=== PATIENT | female | born 1955 | race Caucasian/White ===

== ENCOUNTER 2020-03-30 17:01 | Inpatient (IN) | payer OTHER ==
[~2020-03-30] VITALS: Ht 167.6 cm; Wt 150.9 kg
[~2020-03-30 17:01] MED LIST: ALPR.5 PO; GUAI600T33 PO
[2020-03-30] MEDS ORDERED: ALBU2.5V5 INH (17:40)
[2020-03-30] MEDS ORDERED: IPRAT-ALBUT 0.5-3 ML (17:43)
[2020-03-30] MEDS ORDERED: Ativan1 MG PO (17:43)
[2020-03-30] MEDS ORDERED: Ondansetron4 MG/2 ML IV (17:44)
[2020-03-30 18:52] LABS: BASOPHILS ABSOLUTE AUTO 0.02 K/mm3 (0.00-0.23); BASOPHILS PERCENT AUTO 0 % (0-2); EOSINOPHILS ABSOLUTE AUTO 0.07 K/mm3 (0.00-0.68); EOSINOPHILS PERCENT AUTO 1 % (0-6); Hemoglobin 11.3 g/dL (11.5-16.0); IMMATURE GRAN ABSOLUTE AUTO 0.04 K/mm3 (0.00-0.10); IMMATURE GRAN PERCENT AUTO 0 % (0-1); LYMPHOCYTES ABSOLUTE AUTO 1.88 K/mm3 (0.84-5.20); LYMPHOCYTES PERCENT AUTO 20 % (21-46); MONOCYTES ABSOLUTE AUTO 0.94 K/mm3 (0.16-1.47); MONOCYTES PERCENT AUTO 10 % (4-13); Mean Corpuscular HGB 24.2 pg (26.0-34.0); Mean Corpuscular HGB Conc 30.5 g/dL (31.5-36.5); Mean Corpuscular Volume 79 fL (80-100); Mean Platelet Volume 10.3 fL (9.1-12.4); NEUTROPHILS PERCENT AUTO 68 % (41-73); Platelet Count 318 K/mm3 (150-400); RDW Coefficient Variation 14.6 % (11.7-14.2); RDW Standard Deviation 42.3 fL (35.1-46.3); Red Blood Cell Count 4.66 M/mm3 (3.80-5.20); White Blood Cell Count 9.25 K/mm3 (4.00-11.30)
[2020-03-30 19:13] LABS: Alanine Aminotransfer (ALT/SGP 27 U/L (12-78); Albumin, Blood 2.3 g/dL (3.4-5.0); Albumin/Globulin Ratio 0.5 (0.8-1.8); Alk Phos 70 U/L (50-136); Anion Gap 6 mmol/L (6-16); Aspartate Aminotrans (AST/SGOT 53 U/L (12-37); Bilirubin, Total 0.9 mg/dL (0.1-1.0); Blood Urea Nitrogen 7 mg/dL (8-24); Bun/Creatinine Ratio 10.7 (12.0-20.0); CO2, Blood 27 mmol/L (21-32); Calcium, Blood 8.3 mg/dL (8.5-10.1); Chloride, Blood 102 mmol/L (98-108); Creatinine, Blood 0.65 mg/dL (0.40-1.00); Globulin, Blood 4.6 g/dL (2.2-4.0); Glomerular Filtration Rate >60 (60-); Glucose, Blood 103 mg/dL (70-99); Potassium, Blood 3.8 mmol/L (3.5-5.5); Sodium, Blood 135 mmol/L (136-145); Total Protein, Blood 6.9 g/dL (6.4-8.2); Troponin I <0.015 ng/mL (0.000-0.040)
[2020-03-30 21:30] LABS: International Normalized Ratio 1.04; Prothrombin Time Results 11.1 Sec (9.7-11.5)
--- NOTE | 2020-03-30 23:42 | NUR ---
PCU ADMIT PT BROUGHT TO PCU-13 FROM ER BY JACOBY @ APPROX 2240. PT A&O X4, ABLE TO STAND AND AMBULATE FROM [facility] TO PCU BED. PT BP ELEVATED. MONITOR SHOWS SR-ST, HR 90's-110. SPO2 93% ON 5L NC. PT RESPIRATIONS TACHY & SHALLOW. PT COACHED TO DEEP BREATH. PT REPORTS "NO ONE TOLD ME TO WEAR OXYGEN. MY & I JUST WENT AND GOT SOME. I NEVER WEAR MORE THAN 3L. I ONLY WEAR 2L WHEN I NEED IT." PT WANTING TO REMOVE NC. PT UPDATED ON SPO2 OF 92-93% ON 5L NC & NECESITY FOR NC AT THIS TIME. PT ENCOURAGED TO CONTINUE DEEP BREATHING. PT TALKING QUICKLY & REQUIRES REDIRECTION W/ CONVERSATION. PT DENIES HAVING ANY HOME MEDICATIONS, STATING "I DON'T TAKE ANYTHING AT ALL. THEY WANTED ME TO TAKE THINGS BUT HAVE YOU SEEN ALL THE SIDE EFFECTS FOR XANAX AND ATIVAN. I DON'T HAVE ANXIETY. THEY DID TESTS, I DON'T HAVE IT." PT REPORTS BEING TOLD SHE HAS CANCER 6 MONTHS AGO BUT STATES "THEY DIDN'T TELL ME WHAT KIND OF CANCER. THEY DON'T EVEN KNOW." PT CONFIRMS HAVING BREAST TUMOR REMOVED BUT DENIES KNOWLEDGE OF CANCER. PT REPORTING DARK URINE, DEMANDING IV FLUIDS. PT INFORMED OF NO ORDER FOR IV FLUIDS AT THIS TIME & ENCOURAGED TO DRINK WATER THAT PT IS ALREADY DRINKING. PT DEMANDING TO SEE DOCTOR, PT INFORMED IF ALREADY SEEN BY ADMITTING HOSPITALIST IN ER, HOSPITALIST WILL ROUND AGAIN IN AM. WILL CONTINUE TO MONITOR & PROVIDE CARE.
--- NOTE | 2020-03-31 00:07 | NUR ---
IV FLUIDS SUDHIR MCGHEE NOTIFIED OF PT REPORT OF DARK URINE & REQUEST FOR IV FLUIDS. SUDHIR MCGHEE W/ NEW ORDER FOR LR, SEE ORDERS. NEW ORDER FROM [employer] FOR PRN IV HYDRALAZINE FOR ELEVATED BP WELL, SEE ORDERS.
[2020-03-31 03:33] LABS: Source, Urine Voided
[2020-03-31 03:35] LABS: Appearance, Urine Clear (Clear); Bilirubin, Urine Neg (Neg); Blood, Urine Neg (Neg); Color, Urine Amber (P-Yellow); Glucose Qualitative, Urine Neg (Neg); Ketones, Urine Neg (Neg); Leukocyte Esterase, Urine Neg (Neg); Nitrite, Urine Neg (Neg); Protein, Urine Neg (Neg); Specific Gravity, Urine 1.015 (1.003-1.022); Urobilinogen, Urine 2+ (Normal)
[2020-03-31 04:27] LABS: BASOPHILS ABSOLUTE AUTO 0.04 K/mm3 (0.00-0.23); BASOPHILS PERCENT AUTO 1 % (0-2); EOSINOPHILS ABSOLUTE AUTO 0.18 K/mm3 (0.00-0.68); EOSINOPHILS PERCENT AUTO 2 % (0-6); Hematocrit 38.9 % (33.0-51.0); Hemoglobin 11.7 g/dL (11.5-16.0); IMMATURE GRAN ABSOLUTE AUTO 0.03 K/mm3 (0.00-0.10); IMMATURE GRAN PERCENT AUTO 0 % (0-1); LYMPHOCYTES ABSOLUTE AUTO 1.92 K/mm3 (0.84-5.20); LYMPHOCYTES PERCENT AUTO 23 % (21-46); MONOCYTES ABSOLUTE AUTO 0.93 K/mm3 (0.16-1.47); MONOCYTES PERCENT AUTO 11 % (4-13); Mean Corpuscular HGB 24.2 pg (26.0-34.0); Mean Corpuscular HGB Conc 30.1 g/dL (31.5-36.5); Mean Corpuscular Volume 81 fL (80-100); Mean Platelet Volume 10.1 fL (9.1-12.4); NEUTROPHILS ABSOLUTE AUTO 5.15 K/mm3 (1.96-9.15); NEUTROPHILS PERCENT AUTO 62 % (41-73); Platelet Count 299 K/mm3 (150-400); RDW Coefficient Variation 14.7 % (11.7-14.2); RDW Standard Deviation 43.2 fL (35.1-46.3); Red Blood Cell Count 4.83 M/mm3 (3.80-5.20); White Blood Cell Count 8.25 K/mm3 (4.00-11.30)
[2020-03-31 04:38] LABS: Alanine Aminotransfer (ALT/SGP 28 U/L (12-78); Albumin, Blood 2.1 g/dL (3.4-5.0); Albumin/Globulin Ratio 0.4 (0.8-1.8); Alk Phos 70 U/L (50-136); Anion Gap 7 mmol/L (6-16); Aspartate Aminotrans (AST/SGOT 51 U/L (12-37); Bilirubin, Total 1.2 mg/dL (0.1-1.0); Blood Urea Nitrogen 6 mg/dL (8-24); Bun/Creatinine Ratio 9.8 (12.0-20.0); CO2, Blood 23 mmol/L (21-32); Calcium, Blood 8.1 mg/dL (8.5-10.1); Chloride, Blood 103 mmol/L (98-108); Creatinine, Blood 0.62 mg/dL (0.40-1.00); Globulin, Blood 5.2 g/dL (2.2-4.0); Glomerular Filtration Rate >60 (60-); Glucose, Blood 107 mg/dL (70-99); Potassium, Blood 3.9 mmol/L (3.5-5.5); Sodium, Blood 133 mmol/L (136-145); Total Protein, Blood 7.3 g/dL (6.4-8.2)
--- NOTE | 2020-03-31 05:43 | NUR ---
PT CRYING PT CRYING IN RM. REPORTING SHE FEELS LIKE A BOTHER HAVING TO CALL FOR ASSISTANCE TO USE BATHROOM. PT ENCOURAGED TO CONTINUE CALLING FOR PT SAFETY WHILE HOOKED UP TO TELEMETRY, CONTINUOUS BIOX, & IV FLUIDS. PT HAVING DIFFICULTY GETTING IN & OUT OF BED. PT SOB W/ EXERTION. PT W/ RAPID SHALLOW BREATING, ENCOURAGED TO TAKE SLOW DEEP BREATHS W/ PT COMPLIANCE & SPO2 > 92% ON 5L NC.
--- NOTE | 2020-03-31 05:49 | NUR ---
SHIFT SUMMARY PT A&O X4. VSS. SPO2 > 92% ON 5L NC. MONITOR SHOWS SR-ST, HR 80's-110. PT W/ REPORT OF RECENT MEDIPORT PLACEMENT TO R CHEST WALL, SUTURE NOTED TO SITE. PT ALSO W/ PREVIOUS CHEST TUBE REMOVAL SITE TO PT R SIDE. SITE SOFT, W/ GAUZE DRESSING IN TACT. NO CREPITUS NOTED. WILL CONTINUE TO MONITOR & PROVIDE CARE UNTIL REPORT OFF TO DAY SHIFT RN.
--- NOTE | 2020-03-31 08:19 | NUR ---
ASSUMED CARE AT 0700, REPORT FROM KOTA SANTIAGO. SITTING IN HIGH FOWL[place] IN BED.. A/A/OX4. DR. COLLINS WITH PT FOR CONSULT. LR INFUSING AT 100ML/HR PER ORDERS. MEDIPORT INSERTION SITE CLEAN, DRY AND SUTURES INTACT. BANDAGE TO RIGHT SIDE FROM CHEST TUBE REMOVAL YESTERDAY CLEAN DRY AND INTACT. PLAN OF CARE REVIEWED WITH PT FOR DAY, WILL CONTINUE TO MONITOR.
--- NOTE | 2020-03-31 12:13 | NUR ---
SPOKE WITH PHARMACIST REGARDING UNVERIFIED MED ORDERS THIS AM OF ZOFRAN, DECADRON AND CHEMO MED. PHARMACIST AWAITING CALL FROM DR. COLLINS, PER PHARMACIST THESE MEDS ARE ORDERED FOR GIVING JUST PRIOR TO INTIATING CHEMO. CHEMO MED IS ON ORDER AND SHOULD ARRIVE IN THE NEXT DAY OR TWO. WILL HOLD THESE MEDS UNTIL CONFIRMATION FROM DR. COLLINS.
--- NOTE | 2020-03-31 17:05 | NUR ---
SPOKE WITH DR. HUNTLEY REGARDING COVID ORDERS. NEGATIVE COVID RESULT SENT FROM [facility] THIS AFTERNOON AND PLACED IN CHART. OK TO CANCEL RAPID COVID PER DR. HUNTLEY.
--- NOTE | 2020-03-31 18:26 | NUR ---
SHIFT SUMMARY; A/A/OX4 THROUGHOUT SHIFT TODAY. INDEPENDANT IN ROOM TO BEDSIDE COMMODE. O2 4L DOWN FROM 5L PRIOR TO THROCENTESIS. 800L REMOVED DURING US GUIDED THRO TODAY. NOTABLY LESS ANXIOUS. MEDIPORT SURGICAL SITE CLEAN DRY AND INTACT. BANDAGE TO RIGHT LATERAL SIDE FROM CHEST TUBE REMOVAL LAST NIGHT, CLEAN DRY AND INTACT. NO SIGNS OF CREPITUS TO AREA. DIMINISHED L/S THROUGHOUT. LR INFUSING AT 100ML/HR, WILL CONTINUE TO TREAT AND MONITOR UNTIL CHANGE OF SHIFT.
--- NOTE | 2020-03-31 20:14 | NUR ---
ATTEMPT IV START WITH ULTRASOUND, PATIENT C\O THAT THIS RN NOT DOING IT CORRECTLY. ATTEMPT ABORTED D\T CONSTANT COMPLAINING OF HOE PROCEDURE WAS BEING ATTEMPTED. MARTIN ICU CARPENTER HELPER, COME TO MAKE ATTEMPT.
--- NOTE | 2020-04-01 00:29 | NUR ---
OXYGEN / DIFFICULTY UNDERSTANDING PT AWOKE SOB W/ SPO2 88% ON 4L NC. PT STATING "I FEEL LIKE I CAN'T BREATHE, LIKE I'M NOT GETTING ENOUGH AIR. CAN YOU TURN DOWN MY OXYGEN?" PT COACHED TO DEEP BREATHE IN THROUGH NOSE & OUT THROUGH MOUTH PT BREATHING SHALLOWLY & QUICKLING THROUGH MOUTH. PT EDUCATED ON NEED FOR OXYGEN & INAPPROPRIATENESS OF TITRATING O2 DOWN WHILE SOB & OXYGEN LEVEL LOW. PT STILL ASKING FOR O2 BE TURNED DOWN. NC LEFT @ 4L & PT COACHED THROUGH DEEP BREATHING W/ SPO2 RETURN TO 93%. WILL CONTINUE TO MONITOR.
--- NOTE | 2020-04-01 05:06 | NUR ---
SHIFT SUMMARY PT A&O W/ NEED FOR REINFORCEMENT, REMINDING, & ENCOURAGING. PT W/ EPISODES OF ANXIETY W/ BREATHING, WANTING NC L's BE TURNED DOWN WHEN SOB, SEE PREVIOUS NOTE. PT REQUIRING BREATHING COACHING MULTIPLE TIMES W/ SETTLING OF EMOTIONS & BREATHING. PT REPORTS NOT WANTING ANY SORT OF MEDICATION FOR ANXIETY THOUGH AVAILABLE TO PT PER EMAR. PT ALSO STATING "I HAVEN'T BEEN TOLD ANYTHING ABOUT CHEMO BEING STARTED. NO ONE's DOING ANYTHING." PT REMINDED AGAIN OF CHEMO HAVING TO BE ORDERED W/ PLAN TO BEGIN ON THURSDAY. WILL CONTINUE TO MONITOR & PROVIDE CARE UNTIL REPORT OFF TO DAY SHIFT RN.
[2020-04-01 07:07] LABS: BASOPHILS ABSOLUTE AUTO 0.03 K/mm3 (0.00-0.23); BASOPHILS PERCENT AUTO 0 % (0-2); EOSINOPHILS ABSOLUTE AUTO 0.18 K/mm3 (0.00-0.68); EOSINOPHILS PERCENT AUTO 2 % (0-6); Hematocrit 37.1 % (33.0-51.0); Hemoglobin 11.3 g/dL (11.5-16.0); IMMATURE GRAN ABSOLUTE AUTO 0.02 K/mm3 (0.00-0.10); IMMATURE GRAN PERCENT AUTO 0 % (0-1); LYMPHOCYTES ABSOLUTE AUTO 1.96 K/mm3 (0.84-5.20); LYMPHOCYTES PERCENT AUTO 22 % (21-46); MONOCYTES ABSOLUTE AUTO 0.81 K/mm3 (0.16-1.47); MONOCYTES PERCENT AUTO 9 % (4-13); Mean Corpuscular HGB 24.7 pg (26.0-34.0); Mean Corpuscular HGB Conc 30.5 g/dL (31.5-36.5); Mean Corpuscular Volume 81 fL (80-100); Mean Platelet Volume 10.1 fL (9.1-12.4); NEUTROPHILS ABSOLUTE AUTO 6.03 K/mm3 (1.96-9.15); NEUTROPHILS PERCENT AUTO 67 % (41-73); Platelet Count 335 K/mm3 (150-400); RDW Coefficient Variation 14.8 % (11.7-14.2); RDW Standard Deviation 43.2 fL (35.1-46.3); Red Blood Cell Count 4.58 M/mm3 (3.80-5.20); White Blood Cell Count 9.03 K/mm3 (4.00-11.30)
[2020-04-01 07:22] LABS: Anion Gap 5 mmol/L (6-16); Blood Urea Nitrogen 6 mg/dL (8-24); Bun/Creatinine Ratio 10.2 (12.0-20.0); CO2, Blood 28 mmol/L (21-32); Calcium, Blood 8.7 mg/dL (8.5-10.1); Chloride, Blood 104 mmol/L (98-108); Creatinine, Blood 0.59 mg/dL (0.40-1.00); Glomerular Filtration Rate >60 (60-); Glucose, Blood 112 mg/dL (70-99); Potassium, Blood 4.2 mmol/L (3.5-5.5); Sodium, Blood 137 mmol/L (136-145)
--- NOTE | 2020-04-01 08:09 | NUR ---
PT INQUIRING ABOUT GOING HOME AMA. CONTINUES TO STATE NOTHING IS BEING DONE FOR HER. REITERATED THAT MULTIPLE THINGS BEEN DONE. EVALUATED BY DR. COLLINS YESTERDAY, CHEMO ORDERED FOR THURSDAY, THOROCENTESIS WAS COMPLETE YESTERDAY. PT STATES SHE THOUGHT CHEMO WOULD START IMMEDITALY WHEN SHE ARRIVED IN THE ER THURSDAY AFTER TRANSFER FROM [facility]. WHITNESSED CONVERSATION YESTERDAY BETWEEN DR. COLLINS AND PT WHEN IT WAS EXPLAINED TO PT THAT CHEMO NEEDED TO BE ORDERED AND WOULD START THURSDAY, PT AGREEDED WITH PLAN YESTERDAY DESPITE STATING TODAY THAT SHE DOESN'T KNOW WHATS GOING ON. L/S DIMINISHED T/O, RT TO ROOM FOR BREATHING TX. BANDAGE REMOVED FROM CHEST TUBE REMOVAL SITE. SITE DRY AND INTACT WITH NO CREPITUS. PT STATES SHE IS GOING TO CALL HER TO DISCUSS GOING HOME TODAY AND WILL UPDATE THIS RN REGARDING DECISION.
--- NOTE | 2020-04-01 09:04 | NUR ---
DR. KELLY WITH PT TO DISCUSS PT REQUESTING TO GO HOME. CONVERSTATION WHITNESSED BY THIS RN. PT STATES IS WOULD BE MORE CONVENIENT TO DO CHEMO IN [place] AT DR. CHILEL ORGINALLY PLANED. PT VERBALIZES UNDERSTANDING OF RISKS/BENEFITS OF GOING HOME TODAY. SHE STATES SHE UNDERSTANDS THAT CHEMO WILL NEED TO BE SET UP BY DR. DAWSON WHICH BECAUSE OF HAVING TO RE-ESTABLISH CARE WITH DR. DAWSON THERE COULD BE A DELAY IN STARTING TREATMENT. SHE STATES SHE HAS HOME O2 WHICH HER WILL BRING WHEN HE PICKS HER UP TODAY. DISCHARGE PLANNED FOR THIS AFTERNOON. WILL CONTINUE TO MONITOR AND TREAT UNTIL DISCHARGE.
== END 2020-04-01 17:37 | disposition home or self-care (01) | DRG 180 ==
LOC: ER 17:01 → PCU 21:09 → ENPENDDIS 04-01 09:50 → PCU 04-01 17:37
PROVIDERS: Emergency Medicine; Internal Medicine; Nurse Practitioner Acute Care; ADMIT Family Medicine
PROC: 0W993ZZ Drainage of Right Pleural Cavity, Percutaneous Approach (ICD-10-PCS; principal; 2020-03-31)
DX: C78.01 Secondary malignant neoplasm of right lung (principal); J96.01 Acute respiratory failure with hypoxia; J90 Pleural effusion, not elsewhere classified; Z68.43 Body mass index [BMI] 50.0-59.9, adult; C50.919 Malignant neoplasm of unspecified site of unspecified female breast; Z99.81 Dependence on supplemental oxygen; D25.9 Leiomyoma of uterus, unspecified; E66.01 Morbid (severe) obesity due to excess calories
CPT/HCPCS: 32555; 36415; 70460; 71045; 71046; 74177; 80048; 80053; 81003; 83880; 84484; 85025; 85610; 85730; 93005; 93010; 94640; 94760; J7120